=== PATIENT | female | born 1995 | race Caucasian/White ===

== ENCOUNTER 2017-06-24 06:04 | Emergency (ER) | payer BC ==
[~2017-06-24] VITALS: Ht 152.4 cm; Wt 52.6 kg
== END 2017-06-24 06:45 | disposition home or self-care (01) ==
LOC: FSED 06:23
DX: R50.9 Fever, unspecified (principal); R05 Cough; J10.1 Influenza due to other identified influenza virus with other respiratory manifestations
CPT/HCPCS: 87400; 99282